=== PATIENT | female | born 1985 | race Caucasian/White ===

== ENCOUNTER 2017-01-23 21:54 | Emergency (ER) | payer MEDICARE, OTHER ==
[2017-01-23 21:58] VITALS: TEMP 98
[2017-01-23] MEDS ORDERED: FAMOTIDINE 20 MG/2 ML VIAL IV STA (22:00)
[2017-01-23] MEDS ORDERED: diphenhydrAMINE 50 MG/ML 1 ML VIAL IVP STA ×2 (22:00→22:41)
[2017-01-23] MEDS ORDERED: methylPREDNISolone SOD SUCCI 125 MG/2 ML VIAL IV STA (22:00)
[2017-01-23] MEDS ORDERED: EPINEPHrine 1 MG/ML 1 ML AMP SQ STA (22:00)
[2017-01-23 22:35] VITALS: RESP 18
--- NOTE | 2017-01-23 22:39 | ED ---
Allergic Reaction HPI - General Chief complaint: Allergic Reaction Stated complaint: Allergic Reaction/Shell Fish Time Seen by Provider: 01/23/17 22:00 Source: patient Mode of arrival: ambulatory Limitations: no limitations - History of Present Illness Initial Comments: This patient is a 31-year-old woman who presents to be evaluated for what she believes is an ALLERGIC reaction. The symptoms began probably 15 minutes or so before being seen here. The patient reports she had been at a restaurant and had tried some food that contained lobster. She had never had this before. She then began to feel funny. She felt pressure in her ears and a tightness in her throat. She states that her voice began getting hoarse. She also developed a nonproductive cough. At this point she and her fianc decided she should be seen at the hospital and they drove her directly here. Following triage she was started on medications and as I am seeing her the patient states the symptoms are improving. The patient is denying other symptoms, including no wheezing, dyspnea, nausea or vomiting. MD Complaint: allergic reaction -: minutes(s) Exposure: food Symptoms: difficulty swallowing, hoarseness, dizziness Severity: moderate Treatment Prior to Arrival: none Previous Allergy History: none - Related Data Home Medications Medication Instructions Recorded Confirmed Omeprazole 40 mg PO AC-BRKFST 01/31/14 08/01/16 Nortriptyline HCl [Nortriptyline 25 mg PO HS 07/05/16 08/01/16 HCl] Gi Cocktail 1 DAILY 08/01/16 Previous Rx's Medication Instructions Recorded Albuterol Inhaler [Ventolin Hfa 2 puff INHALATION Q6HR PRN #1 07/05/16 Inhaler] inhaler Metoclopramide HCl [Reglan] 5 mg PO BID PRN #10 tablet 08/01/16 Famotidine [Pepcid] 20 mg PO DAILY #14 tablet 01/23/17 predniSONE 60 mg PO DAILY #30 tab 01/23/17 Allergies Allergy/AdvReac Type Severity Reaction Status Date / Time Penicillins Allergy Unknown Verified 01/23/17 21:58 shellfish derived [Lobster] Allergy Dyspnea Verified 01/23/17 21:58 Review of Systems ROS Statement: Those systems with pertinent positive or pertinent negative responses have been documented in the HPI. ROS Other: All systems not noted in ROS Statement are negative. Constitutional: Denies: fever, chills Eyes: Denies: vision change ENT: Reports: as per HPI, ear pain, throat pain. Denies: hearing loss Respiratory: Reports: cough. Denies: dyspnea, wheezes, stridor Cardiovascular: Denies: chest pain, palpitations, edema Gastrointestinal: Denies: abdominal pain, vomiting, diarrhea Skin: Denies: rash Neurological: Denies: headache Psychiatric: Reports: anxiety Past Medical History Past Medical History: Asthma Additional Past Medical History / Comment(s): esophageal spasm, achalasia History of Any Multi-Drug Resistant Organisms: None Reported Past Surgical History: Appendectomy, Section Additional Past Surgical History / Comment(s): Esophageal surgery, multiple endoscopy with dilations. Past Anesthesia/Blood Transfusion Reactions: No Reported Reaction Past Psychological History: Anxiety, Depression Smoking Status: Current every day smoker Past Alcohol Use History: None Reported Past Drug Use History: None Reported, Marijuana General Exam Limitations: no limitations General appearance: alert, in no apparent distress, obese Head exam: Present: atraumatic, normocephalic Eye exam: Present: normal appearance. Absent: scleral icterus, conjunctival injection ENT exam: Present: normal oropharynx, mucous membranes moist Neck exam: Present: normal inspection, full ROM. Absent: tenderness, meningismus, lymphadenopathy Respiratory exam: Present: normal lung sounds bilaterally. Absent: respiratory distress, wheezes, rales, rhonchi, stridor Cardiovascular Exam: Present: regular rate, normal rhythm, normal heart sounds. Absent: systolic murmur, diastolic murmur, rubs, gallop GI/Abdominal exam: Present: soft. Absent: distended, tenderness, guarding, rebound, mass Extremities exam: Present: normal inspection, normal capillary refill. Absent: pedal edema, calf tenderness Back exam: Present: normal inspection. Absent: CVA tenderness (R), CVA tenderness (L) Neurological exam: Present: alert, CN II-XII intact Skin exam: Present: warm, dry, intact, normal color. Absent: rash Course Vital Signs 01/23/17 01/23/17 01/23/17 21:56 22:00 22:34 Temperature 98.0 F Pulse Rate 78 77 Respiratory 18 32 H 18 Rate Blood Pressure 161/81 O2 Sat by Pulse 100 100 Oximetry Disposition Clinical Impression: Allergic reaction, Food allergy Disposition: HOME SELF-CARE Condition: Good Instructions: Food Allergy (ED) Prescriptions: Famotidine [Pepcid] 20 mg PO DAILY #14 tablet predniSONE 60 mg PO DAILY #30 tab Referrals: Janeen Odom MD [Primary Care Provider] - 1-2 days
[2017-01-23 23:19] VITALS: BP 128/77; PULSE 75
== END 2017-01-23 23:18 | disposition home or self-care (01) ==
LOC: EC 21:54
DX: R42 Dizziness and giddiness (principal); T78.1XXA Other adverse food reactions, not elsewhere classified, initial encounter; R05 Cough; R13.10 Dysphagia, unspecified; F32.9 Major depressive disorder, single episode, unspecified; F41.9 Anxiety disorder, unspecified; F17.200 Nicotine dependence, unspecified, uncomplicated; Z79.899 Other long term (current) drug therapy; Z91.013 Allergy to seafood
CPT/HCPCS: 99283; 96374; 96375 ×2; 96372; J0171; J1200; J2930

== ENCOUNTER 2017-02-14 23:51 | Emergency (ER) | payer MEDICARE, OTHER ==
[2017-02-15] MEDS ORDERED: KETOROLAC 60 MG/2 ML VIAL IM STA (00:06)
--- NOTE | 2017-02-15 00:50 | ED ---
General Adult HPI - General Chief complaint: Extremity Injury, Lower Stated complaint: left foot injury Time Seen by Provider: 02/14/17 23:55 Source: patient, RN notes reviewed Mode of arrival: ambulatory Limitations: no limitations - History of Present Illness Initial comments: This is a 31-year-old female comes in complaining of left foot and toe pain. Patient states she dropped a cinderblock on her foot just prior to arrival. Patient denies any midfoot or heel pain. Patient denies ankle pain. Patient denies any break in the skin. Patient denies any other injury at this time. Patient was able to ambulate on the foot but she stated did hurt. - Related Data Home Medications Medication Instructions Recorded Confirmed Omeprazole 40 mg PO AC-BRKFST 01/31/14 08/01/16 Nortriptyline HCl [Nortriptyline 25 mg PO HS 07/05/16 08/01/16 HCl] Gi Cocktail 1 DAILY 08/01/16 Previous Rx's Medication Instructions Recorded Albuterol Inhaler [Ventolin Hfa 2 puff INHALATION Q6HR PRN #1 07/05/16 Inhaler] inhaler Metoclopramide HCl [Reglan] 5 mg PO BID PRN #10 tablet 08/01/16 Famotidine [Pepcid] 20 mg PO DAILY #14 tablet 01/23/17 predniSONE 60 mg PO DAILY #30 tab 01/23/17 Allergies Allergy/AdvReac Type Severity Reaction Status Date / Time Penicillins Allergy Unknown Verified 02/14/17 23:56 shellfish derived [Lobster] Allergy Dyspnea Verified 02/14/17 23:56 Review of Systems ROS Statement: Those systems with pertinent positive or pertinent negative responses have been documented in the HPI. ROS Other: All systems not noted in ROS Statement are negative. Past Medical History Past Medical History: Asthma Additional Past Medical History / Comment(s): esophageal spasm, achalasia History of Any Multi-Drug Resistant Organisms: None Reported Past Surgical History: Appendectomy, Section Additional Past Surgical History / Comment(s): Esophageal surgery, multiple endoscopy with dilations. Past Anesthesia/Blood Transfusion Reactions: No Reported Reaction Past Psychological History: Anxiety, Depression Smoking Status: Current every day smoker Past Alcohol Use History: None Reported Past Drug Use History: None Reported, Marijuana General Exam - General Exam Comments Initial Comments: GENERAL Patient is well-developed and well-nourished. Patient is in mild distress. EYES Patient's pupils are equal and round. Extraocular motion is intact SKIN Unremarkable NEURO The patient is alert and oriented 3 PYSCH Patient has normal interpersonal interactions. MUSCULOSKELETAL Patient's distal fourth metatarsal is tender to palpation as is the fourth toe. Limitations: no limitations Course Vital Signs 02/14/17 23:53 Temperature 99.2 F Pulse Rate 85 Respiratory 20 Rate Blood Pressure 132/80 O2 Sat by Pulse 100 Oximetry Medical Decision Making - Medical Decision Making X-rays negative for fracture. Disposition Clinical Impression: Contusion of foot Disposition: HOME SELF-CARE Condition: Good Instructions: Foot Contusion (ED) Referrals: Janeen Odom MD [Primary Care Provider] - 1-2 days Time of Disposition: 00:49
[2017-02-15 00:54] VITALS: BP 119/71; PULSE 65; RESP 16; TEMP 97.6
--- NOTE | 2017-02-15 01:22 | XR ---
EXAM: XR Left Foot Complete, 3 or More Views CLINICAL HISTORY: Reason: Pain TECHNIQUE: Frontal, lateral and oblique views of the left foot. COMPARISON: 01/31/14. FINDINGS: Bones/joints: Tiny posterior calcaneal spur. No acute fracture. No dislocation. Soft tissues: Mild forefoot swelling. No radiopaque foreign body. IMPRESSION: No acute osseous abnormality.
== END 2017-02-15 00:53 | disposition home or self-care (01) ==
LOC: EC 23:51
DX: S90.122A Contusion of left lesser toe(s) without damage to nail, initial encounter (principal); F32.9 Major depressive disorder, single episode, unspecified; F41.9 Anxiety disorder, unspecified; F17.200 Nicotine dependence, unspecified, uncomplicated; Z79.899 Other long term (current) drug therapy; Z88.0 Allergy status to penicillin; Z91.013 Allergy to seafood; Z87.19 Personal history of other diseases of the digestive system; W20.8XXA Other cause of strike by thrown, projected or falling object, initial encounter
CPT/HCPCS: 73630; 99283; 96372; J1885

== ENCOUNTER → 2017-09-15 | Outpatient (CLI) | payer MEDICARE, OTHER ==
--- NOTE | 2017-09-15 15:57 | US ---
EXAMINATION TYPE: US venous doppler duplex LE LT DATE OF EXAM: 09/15/2017 3:48 PM COMPARISON: NONE CLINICAL HISTORY: R22.42 Pain/swelling left lower leg. Pt having pain and redness lower anterior left leg SIDE PERFORMED: Left TECHNIQUE: The lower extremity deep venous system is examined utilizing real time linear array sonog vince with graded compression, doppler sonography and color-flow sonography. VESSELS IMAGED: External Iliac Vein (EIV) Common Femoral Vein Deep Femoral Vein Greater Saphenous Vein * Femoral Vein Popliteal Vein Small Saphenous Vein * Proximal Calf Veins (* superficial vessels) Grayscale, color doppler, spectral doppler imaging performed of the deep veins of the lower extremity . There is normal flow, compressibility, vascular waveforms. Left Leg: Negative for DVT Results called to Tanja at 's office at time of exam IMPRESSION: No evidence for DVT.
== END | disposition home or self-care (01) ==
LOC: RADUSWWP 15:30
PROVIDERS: ATTEND Internal Medicine
DX: R22.42 Localized swelling, mass and lump, left lower limb (principal)

== ENCOUNTER 2017-12-30 15:44 | Emergency (ER) | payer MEDICARE, OTHER ==
[2017-12-30 15:48] VITALS: BP 133/73; PULSE 74; RESP 20; TEMP 97.8
[2017-12-30] MEDS ORDERED: HYDROcodone/APAP 5-325MG 1 EACH TAB PO STA (16:04)
[2017-12-30] MEDS ORDERED: carBAMazepine 100 MG TAB.ER.12H PO STA (16:04)
[2017-12-30] MEDS ORDERED: CYCLOBENZAPRINE 10MG STARTER 3 TAB BTL PO STA (16:06)
--- NOTE | 2017-12-30 16:21 | ED ---
General Adult HPI - General Chief complaint: Recheck/Abnormal Lab/Rx Stated complaint: Facial Pain Time Seen by Provider: 12/30/17 15:53 Source: patient, RN notes reviewed, old records reviewed Mode of arrival: ambulatory Limitations: no limitations - History of Present Illness Initial comments: This patient is a 32-year-old female presents emergency Department chief complaint of acute exacerbation of trigeminal neuralgia. She reports for the past 2 hours she's been having some right-sided facial pain. She reports it's shooting in nature. It will come and go. Patient reports that she has had no other symptoms. Denies a significant headache. She reports that she had an exacerbation many years ago. She received a nerve block at that time. Patient has not had an exacerbation in quite some time.Patient denies any recent fever, chills, shortness of breath, chest pain, back pain, abdominal pain, nausea vomiting, numbness or tingling, dysuria or hematuria, constipation or diarrhea, headaches or visual changes, or any other current symptoms - Related Data Home Medications Medication Instructions Recorded Confirmed Omeprazole 40 mg PO AC-BRKFST 01/31/14 08/01/16 Nortriptyline HCl [Nortriptyline 25 mg PO HS 07/05/16 08/01/16 HCl] Gi Cocktail 1 DAILY 08/01/16 Previous Rx's Medication Instructions Recorded Albuterol Inhaler [Ventolin Hfa 2 puff INHALATION Q6HR PRN #1 07/05/16 Inhaler] inhaler Metoclopramide HCl [Reglan] 5 mg PO BID PRN #10 tablet 08/01/16 Famotidine [Pepcid] 20 mg PO DAILY #14 tablet 01/23/17 predniSONE 60 mg PO DAILY #30 tab 01/23/17 Cyclobenzaprine [Flexeril] 10 mg PO TID #15 tab 12/30/17 HYDROcodone/APAP 5-325MG [Thompson 1 tab PO Q4HR PRN #12 tab 12/30/17 5-325] carBAMazepine 100 mg PO BID #18 tab.chew 12/30/17 Allergies Allergy/AdvReac Type Severity Reaction Status Date / Time Penicillins Allergy Unknown Verified 02/14/17 23:56 shellfish derived [Lobster] Allergy Dyspnea Verified 02/14/17 23:56 Review of Systems ROS Statement: Those systems with pertinent positive or pertinent negative responses have been documented in the HPI. ROS Other: All systems not noted in ROS Statement are negative. Past Medical History Past Medical History: Asthma Additional Past Medical History / Comment(s): esophageal spasm, achalasia History of Any Multi-Drug Resistant Organisms: None Reported Past Surgical History: Appendectomy, Section Additional Past Surgical History / Comment(s): Esophageal surgery, multiple endoscopy with dilations. Past Anesthesia/Blood Transfusion Reactions: No Reported Reaction Past Psychological History: Anxiety, Depression Smoking Status: Current every day smoker Past Alcohol Use History: None Reported Past Drug Use History: None Reported, Marijuana General Exam - General Exam Comments Initial Comments: 32-year-old female. Alert and oriented. No distress. Limitations: no limitations General appearance: alert, in no apparent distress Head exam: Present: atraumatic, normocephalic, normal inspection Eye exam: Present: normal appearance, PERRL, EOMI. Absent: scleral icterus, conjunctival injection, periorbital swelling ENT exam: Present: normal exam, mucous membranes moist, other (Patient has tenderness to right side of face.) Neck exam: Present: normal inspection. Absent: tenderness, meningismus, lymphadenopathy Respiratory exam: Present: normal lung sounds bilaterally. Absent: respiratory distress, wheezes, rales, rhonchi, stridor Cardiovascular Exam: Present: regular rate, normal rhythm, normal heart sounds. Absent: systolic murmur, diastolic murmur, rubs, gallop, clicks GI/Abdominal exam: Present: soft, normal bowel sounds. Absent: distended, tenderness, guarding, rebound, rigid Extremities exam: Present: normal inspection, full ROM, normal capillary refill. Absent: tenderness, pedal edema, joint swelling, calf tenderness Back exam: Present: normal inspection Neurological exam: Present: alert, oriented X3, CN II-XII intact Course Vital Signs 12/30/17 15:46 Temperature 97.8 F Pulse Rate 74 Respiratory 20 Rate Blood Pressure 133/73 O2 Sat by Pulse 100 Oximetry Medical Decision Making - Medical Decision Making 32-year-old female chief acute exacerbation of trigeminal neuralgia pain. Patient is pain shooting in nature. She is very sensitive to the right side of her face. She winces with light palpation. Patient will be started on carbamazepine, Flexeril and given pain medication. She requests a nerve block. Discussed that we do not have anybody to do a trigeminal nerve block in the emergency department. Discussed she can follow-up with neurology. Given referral for Dr. Shaw. All questions answered return parameters were discussed. Disposition Clinical Impression: Trigeminal neuralgia of right side of face Disposition: HOME SELF-CARE Condition: Good Instructions: Trigeminal Neuralgia (ED) Additional Instructions: Patient advised to ice the area. Take the medications as prescribed. Follow- up with neurologist. Return to the emergency department if any alarming signs or symptoms occur. Prescriptions: carBAMazepine 100 mg PO BID #18 tab.chew Cyclobenzaprine [Flexeril] 10 mg PO TID #15 tab HYDROcodone/APAP 5-325MG [Thompson 5-325] 1 tab PO Q4HR PRN #12 tab PRN Reason: Nausea Is patient prescribed a controlled substance at d/c from ED?: No If prescribed controlled substance>3 days was MAPS reviewed?: No When asked, does pt state using other controlled substances?: No Referrals: Janeen Odom MD [Primary Care Provider] - 1-2 days Joana Anglin MD [STAFF PHYSICIAN] - 1-2 days Time of Disposition: 16:15
== END 2017-12-30 16:30 | disposition home or self-care (01) ==
LOC: EC 15:44
DX: G50.0 Trigeminal neuralgia (principal); F32.9 Major depressive disorder, single episode, unspecified; F41.9 Anxiety disorder, unspecified; F17.200 Nicotine dependence, unspecified, uncomplicated; Z79.899 Other long term (current) drug therapy; Z91.013 Allergy to seafood; Z88.0 Allergy status to penicillin
CPT/HCPCS: 99283

== ENCOUNTER 2018-01-22 16:56 | Emergency (ER) | payer MEDICARE, OTHER ==
[2018-01-22 17:20] VITALS: TEMP 98.1
[2018-01-22] MEDS ORDERED: MORPHINE SULFATE 4 MG/ML SYRINGE IVP STA (18:36)
[2018-01-22] MEDS ORDERED: methylPREDNISolone SOD SUCCI 125 MG/2 ML VIAL IV STA (18:48)
--- NOTE | 2018-01-22 20:05 | ED ---
General Adult HPI - General Chief complaint: Recheck/Abnormal Lab/Rx Stated complaint: Facial Pain Time Seen by Provider: 01/22/18 18:09 Source: patient Mode of arrival: ambulatory Limitations: no limitations - History of Present Illness Initial comments: Patient is a 32-year-old female presenting for right-sided facial pain. She states that she has a known history of trigeminal neuralgia and that is been going on for several years but increasing since today. The pain is a sharp stabbing sensation on the right side of face and she has tried Flexeril, carbamazepine, naproxen today with still no relief. She denies any other neurologic symptoms including headache, dizziness, facial numbness or focal weakness. - Related Data Home Medications Medication Instructions Recorded Confirmed Omeprazole 40 mg PO AC-BRKFST 01/31/14 08/01/16 Nortriptyline HCl [Nortriptyline 25 mg PO HS 07/05/16 08/01/16 HCl] Gi Cocktail 1 DAILY 08/01/16 Previous Rx's Medication Instructions Recorded Albuterol Inhaler [Ventolin Hfa 2 puff INHALATION Q6HR PRN #1 07/05/16 Inhaler] inhaler Metoclopramide HCl [Reglan] 5 mg PO BID PRN #10 tablet 08/01/16 Famotidine [Pepcid] 20 mg PO DAILY #14 tablet 01/23/17 Cyclobenzaprine [Flexeril] 10 mg PO TID #15 tab 12/30/17 HYDROcodone/APAP 5-325MG [Forest 1 tab PO Q4HR PRN #12 tab 12/30/17 5-325] carBAMazepine 100 mg PO BID #18 tab.chew 12/30/17 Allergies Allergy/AdvReac Type Severity Reaction Status Date / Time Penicillins Allergy Unknown Verified 01/22/18 17:20 shellfish derived [Lobster] Allergy Dyspnea Verified 01/22/18 17:20 Review of Systems ROS Statement: Those systems with pertinent positive or pertinent negative responses have been documented in the HPI. Constitutional: Negative for chills, fatigue and fever. HENT: Negative for congestion. Respiratory: Negative for chest tightness, shortness of breath and wheezing. Negative for cough Cardiovascular: Negative for chest pain and palpitations. Gastrointestinal: Negative for abdominal pain. Negative for abdominal distention , diarrhea, nausea and vomiting. Genitourinary: Negative for dysuria. Musculoskeletal: Negative for back pain, neck pain and neck stiffness. Skin: Negative for color change. Neurological: Negative for dizziness, speech difficulty, weakness and light- headedness. Positive for facial pain Psychiatric/Behavioral: Negative for agitation and confusion. The patient is not nervous/anxious. ROS Other: All systems not noted in ROS Statement are negative. Past Medical History Past Medical History: Asthma Additional Past Medical History / Comment(s): esophageal spasm, achalasia, trigeminal neuralgia History of Any Multi-Drug Resistant Organisms: None Reported Past Surgical History: Appendectomy, Section Additional Past Surgical History / Comment(s): Esophageal surgery, multiple endoscopy with dilations. Past Anesthesia/Blood Transfusion Reactions: No Reported Reaction Past Psychological History: Anxiety, Depression Smoking Status: Current every day smoker Past Alcohol Use History: None Reported Past Drug Use History: Marijuana General Exam - General Exam Comments Initial Comments: Constitutional: Pt is oriented to person, place, and time. Pt appears well- developed and well-nourished. HENT: Head: Normocephalic and atraumatic. Eyes: EOM are normal. Neck: Normal range of motion. Neck supple. Cardiovascular: Normal rate, regular rhythm, S1 normal, S2 normal and normal heart sounds. Exam reveals no gallop and no friction rub. No murmur heard. Pulmonary/Chest: Effort normal and breath sounds normal. No tachypnea and no bradypnea. No respiratory distress. No wheezes or rales noted. Abdominal: Soft. Bowel sounds are normal. Pt exhibits no shifting dullness, no distension, no pulsatile liver, no fluid wave, no abdominal bruit and no ascites. There is no tenderness. There is no rigidity, no rebound, no guarding, no tenderness at McBurney's point and negative Galvan's sign. Musculoskeletal: Normal range of motion. Neurological: Pt is alert and oriented to person, place, and time. No cranial nerve deficit. Skin: Skin is warm and dry. No rash noted. Pt is not diaphoretic. No erythema. No pallor. Psychiatric: Pt has a normal mood and affect. Pt behavior is normal. Thought content normal. Limitations: no limitations Course Vital Signs 01/22/18 17:19 Temperature 98.1 F Pulse Rate 75 Respiratory 20 Rate Blood Pressure 153/98 O2 Sat by Pulse 99 Oximetry Medical Decision Making - Medical Decision Making Case is discussed with on-call neurology and it was recommended the patient be given 250 mg of Solu-Medrol. Additionally, it is recommended that the carbamazepine be increased to 3 times a day. Patient was given morphine and symptoms were severely decreased and she states that she felt comfortable going home. These recommendations were discussed with the patient and she was also given a prescription for prednisone. She was advised to follow-up with neurology and/or return to emergency department if the symptoms worsened. Explained all labs and diagnostic test results and that we will discharge the patient home and patient is to follow up with PCP in 1-2 days and return to the ED if symptoms worsen. Pt is agreeable to plan. Disposition Clinical Impression: Trigeminal neuralgia Disposition: HOME SELF-CARE Condition: Good Is patient prescribed a controlled substance at d/c from ED?: No Referrals: Janeen Odom MD [Primary Care Provider] - 1-2 days Kathy Rojas MD [STAFF PHYSICIAN] - 1-2 days Time of Disposition: 20:04
--- NOTE | 2018-01-22 20:16 | ED ---
Medical Decision Making - Medical Decision Making Purpose of this note is to prescribe prednisone. Disposition Clinical Impression: Trigeminal neuralgia Disposition: HOME SELF-CARE Condition: Good Instructions: Trigeminal Neuralgia (ED) Prescriptions: carBAMazepine [Carbatrol] 100 mg PO Q8HR 7 Days #21 cap predniSONE 50 mg PO DAILY #5 tablet Is patient prescribed a controlled substance at d/c from ED?: No Referrals: Kathy Rojas MD [STAFF PHYSICIAN] - 1-2 days Janeen Odom MD [Primary Care Provider] - 1-2 days Time of Disposition: 20:05
[2018-01-22 20:29] VITALS: BP 114/56; PULSE 95; RESP 18
== END 2018-01-22 20:28 | disposition home or self-care (01) ==
LOC: EC 16:56
DX: G50.0 Trigeminal neuralgia (principal); F32.9 Major depressive disorder, single episode, unspecified; F41.9 Anxiety disorder, unspecified; F17.200 Nicotine dependence, unspecified, uncomplicated; Z79.899 Other long term (current) drug therapy; Z88.0 Allergy status to penicillin; Z91.013 Allergy to seafood
CPT/HCPCS: 99283; 96374; 96375; J2270; J2930

== ENCOUNTER 2018-01-26 16:08 | Emergency (ER) | payer MEDICARE, OTHER ==
[2018-01-26 16:16] VITALS: BP 128/87; PULSE 91; RESP 18; TEMP 98.3
--- NOTE | 2018-01-26 17:09 | ED ---
General Adult HPI - General Chief complaint: ENT Stated complaint: Facial Pain Time Seen by Provider: 01/26/18 16:40 Source: patient, RN notes reviewed Mode of arrival: ambulatory Limitations: no limitations - History of Present Illness Initial comments: This is a 32-year-old female who presents to the emergency department with chief complaint of facial pain. Patient states that she has a history of trigeminal neuralgia. She states that she does see a neurologist however does not have a follow-up appointment until March 22. She states that over the past couple weeks she has been experiencing flareups of her trigeminal neuralgia. She states, "it feels like my face is electric using my brain." She states that the pain is on the right side of her face. She states that she had to leave work early today because the pain became so bad. She states that 2 days ago she did contact her neurologist who increased her dose of carbamazepine. She states that she has been taking this increased dose and ibuprofen with no relief. Denies fever, chills, chest pain, shortness of breath, abdominal pain, nausea or vomiting, constipation or diarrhea, or vision changes. - Related Data Home Medications Medication Instructions Recorded Confirmed Omeprazole 40 mg PO AC-BRKFST 01/31/14 08/01/16 Nortriptyline HCl [Nortriptyline 25 mg PO HS 07/05/16 08/01/16 HCl] Gi Cocktail 1 DAILY 08/01/16 Previous Rx's Medication Instructions Recorded Albuterol Inhaler [Ventolin Hfa 2 puff INHALATION Q6HR PRN #1 07/05/16 Inhaler] inhaler Metoclopramide HCl [Reglan] 5 mg PO BID PRN #10 tablet 08/01/16 Famotidine [Pepcid] 20 mg PO DAILY #14 tablet 01/23/17 Cyclobenzaprine [Flexeril] 10 mg PO TID #15 tab 12/30/17 HYDROcodone/APAP 5-325MG [[place] 1 tab PO Q4HR PRN #12 tab 12/30/17 5-325] carBAMazepine 100 mg PO BID #18 tab.chew 12/30/17 carBAMazepine [Carbatrol] 100 mg PO Q8HR 7 Days #21 cap 01/22/18 predniSONE 50 mg PO DAILY #5 tablet 01/22/18 Allergies Allergy/AdvReac Type Severity Reaction Status Date / Time Penicillins Allergy Unknown Verified 01/26/18 16:16 shellfish derived [Lobster] Allergy Dyspnea Verified 01/26/18 16:16 Review of Systems ROS Statement: Those systems with pertinent positive or pertinent negative responses have been documented in the HPI. ROS Other: All systems not noted in ROS Statement are negative. Past Medical History Past Medical History: Asthma Additional Past Medical History / Comment(s): esophageal spasm, achalasia, trigeminal neuralgia History of Any Multi-Drug Resistant Organisms: None Reported Past Surgical History: Appendectomy, Section Additional Past Surgical History / Comment(s): Esophageal surgery, multiple endoscopy with dilations. Past Anesthesia/Blood Transfusion Reactions: No Reported Reaction Past Psychological History: Anxiety, Depression Smoking Status: Current every day smoker Past Alcohol Use History: None Reported Past Drug Use History: Marijuana General Exam - General Exam Comments Initial Comments: General: Awake and alert, well-developed; in no apparent distress. Lying on ED stretcher with hand cradling her right cheek. Niece is at bedside. HEENT: Head atraumatic, normocephalic. Pupils are equal, round and reactive to light. Extraocular movements intact. Oropharynx moist without erythema or exudate. Neck: Supple. Normal ROM. Cardiovascular: Regular rate and rhythm. No murmurs, rubs or gallops. Chest symmetrical. Respiratory: Lungs clear to auscultation bilaterally. No wheezes, rales or rhonchi. Normal respiratory effort with no use of accessory muscles. Musculoskeletal: Normal ROM, no tenderness bilateral upper and lower extremities. Ambulating normally. Neurological: Alert and oriented x3. CN II-XII grossly intact. Speech is fluent and answers are appropriate. No focal neuro deficits. Psychiatric: Normal mood and affect. No overt signs of depression or anxiety noted. Limitations: no limitations Course Vital Signs 01/26/18 16:13 Temperature 98.3 F Pulse Rate 91 Respiratory 18 Rate Blood Pressure 128/87 O2 Sat by Pulse 100 Oximetry Medical Decision Making - Medical Decision Making This is a 32-year-old female who presents to the emergency department with chief complaint of facial pain. Patient has a history of trigeminal neuralgia. She has been having flareups over the past couple of weeks. Unable to get an appointment with her neurologist until March 22. This case was discussed with attending physician, Dr. Gonzalez. Patient is to follow-up with her primary care provider or neurologist in order to have medications adjusted. We do not do that here in the emergency department. I explained this to patient and she became very agitated and frustrated. I did offer patient pain medication, however explained that this would not cure the problem. She refuses pain medication. Vital signs are stable and she is in no acute distress. She'll be discharged home at this time. Disposition Clinical Impression: Trigeminal neuralgia Disposition: HOME SELF-CARE Condition: Good Instructions: Trigeminal Neuralgia (ED) Additional Instructions: Please follow up with primary care provider within 1-2 days. Return to emergency department if symptoms should worsen or any concerns arise. Is patient prescribed a controlled substance at d/c from ED?: No Referrals: Janeen Odom MD [Primary Care Provider] - 1-2 days Time of Disposition: 17:09
== END 2018-01-26 17:13 | disposition home or self-care (01) ==
LOC: EC 16:08
DX: G50.0 Trigeminal neuralgia (principal); F32.9 Major depressive disorder, single episode, unspecified; F17.200 Nicotine dependence, unspecified, uncomplicated; Z79.899 Other long term (current) drug therapy; Z88.0 Allergy status to penicillin; Z91.013 Allergy to seafood
CPT/HCPCS: 99283

== ENCOUNTER 2018-06-17 00:03 | Emergency (ER) | payer MEDICARE, OTHER ==
[2018-06-17] MEDS ORDERED: SODIUM CHLORIDE 0.9% IVPB STA (00:31)
[2018-06-17] MEDS ORDERED: PHENYTOIN SODIUM IVPB STA (00:31)
[2018-06-17] MEDS ORDERED: carBAMazepine 200 MG TAB PO STA (00:31)
[2018-06-17] MEDS ORDERED: ONDANSETRON 4 MG/2 ML VIAL IVP STA (00:50)
--- NOTE | 2018-06-17 01:01 | ED ---
General Adult HPI - General Chief complaint: ENT Stated complaint: Facial Pain Time Seen by Provider: 06/17/18 00:10 Source: patient Mode of arrival: ambulatory Limitations: no limitations - History of Present Illness Initial comments: This patient is a 33-year-old woman with history of trigeminal neuralgia. She presents with complaint that she is having exacerbation of that condition this evening. She states that she had run out of her carbamazepine. Patient states she is having very sharp pains running from the right ear to the infraorbital area. They're intermittent. She states it feels like she is being shocked. She denies any new symptoms. -: hour(s) Location: face Quality: sharp Consistency: intermittent Improves with: none Worsens with: none Associated Symptoms: denies other symptoms Treatments Prior to Arrival: none - Related Data Home Medications Medication Instructions Recorded Confirmed Omeprazole 40 mg PO AC-BRKFST 01/31/14 08/01/16 Nortriptyline HCl 25 mg PO HS 07/05/16 08/01/16 Gi Cocktail 1 DAILY 08/01/16 Previous Rx's Medication Instructions Recorded Albuterol Inhaler [Ventolin Hfa 2 puff INHALATION Q6HR PRN #1 07/05/16 Inhaler] inhaler Metoclopramide HCl [Reglan] 5 mg PO BID PRN #10 tablet 08/01/16 Famotidine [Pepcid] 20 mg PO DAILY #14 tablet 01/23/17 Cyclobenzaprine [Flexeril] 10 mg PO TID #15 tab 12/30/17 HYDROcodone/APAP 5-325MG [[place] 1 tab PO Q4HR PRN #12 tab 12/30/17 5-325] carBAMazepine 100 mg PO BID #18 tab.chew 12/30/17 carBAMazepine [Carbatrol] 100 mg PO Q8HR 7 Days #21 cap 01/22/18 predniSONE 50 mg PO DAILY #5 tablet 01/22/18 carBAMazepine 100 mg PO TID #30 tab.chew 06/17/18 Allergies Allergy/AdvReac Type Severity Reaction Status Date / Time Penicillins Allergy Unknown Verified 06/17/18 00:08 shellfish derived [Lobster] Allergy Dyspnea Verified 06/17/18 00:08 Review of Systems ROS Statement: Those systems with pertinent positive or pertinent negative responses have been documented in the HPI. ROS Other: All systems not noted in ROS Statement are negative. Constitutional: Denies: fever, chills Eyes: Denies: eye pain, vision change ENT: Denies: ear pain, hearing loss, congestion Respiratory: Denies: cough Cardiovascular: Denies: chest pain Gastrointestinal: Denies: abdominal pain Musculoskeletal: Denies: back pain Skin: Denies: rash Neurological: Denies: headache, weakness, numbness, paresthesias Past Medical History Past Medical History: Asthma Additional Past Medical History / Comment(s): esophageal spasm, achalasia, trigeminal neuralgia History of Any Multi-Drug Resistant Organisms: None Reported Past Surgical History: Appendectomy, Section Additional Past Surgical History / Comment(s): Esophageal surgery, multiple endoscopy with dilations. Past Anesthesia/Blood Transfusion Reactions: No Reported Reaction Past Psychological History: Anxiety, Depression Smoking Status: Current every day smoker Past Alcohol Use History: None Reported Past Drug Use History: Marijuana General Exam Limitations: no limitations General appearance: alert, obese Head exam: Present: atraumatic, normocephalic Eye exam: Present: normal appearance, PERRL, EOMI. Absent: scleral icterus, conjunctival injection ENT exam: Present: normal oropharynx Neck exam: Present: normal inspection, full ROM. Absent: tenderness Neurological exam: Present: alert, CN II-XII intact Skin exam: Present: warm, dry, intact, normal color. Absent: rash Course Vital Signs 06/17/18 00:05 Temperature 98.0 F Pulse Rate 112 H Respiratory 18 Rate Blood Pressure 137/73 O2 Sat by Pulse 98 Oximetry Disposition Clinical Impression: Trigeminal neuralgia of right side of face Disposition: HOME SELF-CARE Condition: Good Instructions: Trigeminal Neuralgia (ED) Prescriptions: carBAMazepine 100 mg PO TID #30 tab.chew Is patient prescribed a controlled substance at d/c from ED?: No Referrals: Janeen Odom MD [Primary Care Provider] - 1-2 days
[2018-06-17 03:40] VITALS: BP 109/53; PULSE 80; RESP 16; TEMP 98.1
== END 2018-06-17 03:40 | disposition home or self-care (01) ==
LOC: EC 00:03
DX: G50.0 Trigeminal neuralgia (principal); F32.9 Major depressive disorder, single episode, unspecified; F41.9 Anxiety disorder, unspecified; F17.200 Nicotine dependence, unspecified, uncomplicated; Z79.899 Other long term (current) drug therapy; Z88.0 Allergy status to penicillin; Z91.013 Allergy to seafood
CPT/HCPCS: 99283; 96365; 96366 ×2; 96375; J1165; J2405

== ENCOUNTER 2019-03-25 17:03 | Emergency (ER) | payer OTHER, MEDICARE ==
--- NOTE | 2019-03-25 17:51 | ED ---
Skin/Abscess/FB HPI - General Chief complaint: Skin/Abscess/Foreign Body Stated complaint: Lump on breast Time Seen by Provider: 03/25/19 17:25 Source: patient Mode of arrival: ambulatory Limitations: no limitations - History of Present Illness Initial comments: Patient is a 34-year-old female presenting to the emergency Department with complaints of pain in her left breast x 1 week. Patient states she started noticing pain in her left breast a week ago and then yesterday started noticing some redness on the lower aspect of her breast. Then today in the shower patient felt a large lump in the bottom part of her breast which was painful to the touch. Patient states she has not breast-fed in over 2 years. Patient denies any fever, chills. Patient does admit to some nausea. Patient has never had this before. Patient has no other complaints at this time. - Related Data Home Medications Medication Instructions Recorded Confirmed Omeprazole 40 mg PO AC-BRKFST 01/31/14 08/01/16 Nortriptyline HCl 25 mg PO HS 07/05/16 08/01/16 Gi Cocktail 1 DAILY 08/01/16 Previous Rx's Medication Instructions Recorded Albuterol Inhaler [Ventolin Hfa 2 puff INHALATION Q6HR PRN #1 07/05/16 Inhaler] inhaler Metoclopramide HCl [Reglan] 5 mg PO BID PRN #10 tablet 08/01/16 Famotidine [Pepcid] 20 mg PO DAILY #14 tablet 01/23/17 Cyclobenzaprine [Flexeril] 10 mg PO TID #15 tab 12/30/17 HYDROcodone/APAP 5-325MG [[place] 1 tab PO Q4HR PRN #12 tab 12/30/17 5-325] carBAMazepine 100 mg PO BID #18 tab.chew 12/30/17 carBAMazepine [Carbatrol] 100 mg PO Q8HR 7 Days #21 cap 01/22/18 predniSONE 50 mg PO DAILY #5 tablet 01/22/18 carBAMazepine 100 mg PO TID #30 tab.chew 06/17/18 Albuterol Nebulized [Ventolin 2.5 mg INHALATION Q4H PRN #30 nebu 11/27/18 Nebulized] Cephalexin [Keflex] 500 mg PO Q6HR 10 Days #40 cap 03/25/19 Ondansetron Odt [Zofran Odt] 4 mg PO Q8HR PRN #10 tab 03/25/19 Allergies Allergy/AdvReac Type Severity Reaction Status Date / Time Penicillins Allergy Unknown Verified 03/25/19 17:10 shellfish derived [Lobster] Allergy Dyspnea Verified 03/25/19 17:10 Review of Systems ROS Statement: Those systems with pertinent positive or pertinent negative responses have been documented in the HPI. ROS Other: All systems not noted in ROS Statement are negative. Past Medical History Past Medical History: Asthma Additional Past Medical History / Comment(s): esophageal spasm, achalasia, trigeminal neuralgia History of Any Multi-Drug Resistant Organisms: None Reported Past Surgical History: Appendectomy, Section Additional Past Surgical History / Comment(s): Esophageal surgery, multiple en doscopy with dilations. Past Anesthesia/Blood Transfusion Reactions: No Reported Reaction Past Psychological History: Anxiety, Depression Smoking Status: Current every day smoker Past Alcohol Use History: None Reported Past Drug Use History: None Reported General Exam - General Exam Comments Initial Comments: GENERAL: Well-appearing, well-nourished and in no acute distress. HEAD: Atraumatic, normocephalic. EYES: Pupils equal round and reactive to light, extraocular movements intact, sclera anicteric, conjunctiva are normal. ENT: TMs normal, nares patent, oropharynx clear without exudates. Moist mucous membranes. NECK: Normal range of motion, supple without lymphadenopathy or JVD. LUNGS: Breath sounds clear to auscultation bilaterally and equal. No wheezes rales or rhonchi. HEART: Regular rate and rhythm without murmurs, rubs or gallops. ABDOMEN: Soft, nontender, normoactive bowel sounds. No guarding, no rebound. No masses appreciated. : Deferred EXTREMITIES: Normal range of motion, no pitting or edema. No clubbing or cyanosis. NEUROLOGICAL: Cranial nerves II through XII grossly intact. Normal speech, normal gait. PSYCH: Normal mood, normal affect. SKIN: Warm, Dry. Patient has small area of mild erythema on the left breast below the nipple. Patient has area of induration underneath that is about 3 cm in diameter and tender to palpation. There is no pustule present. Patient is having active drainage from the nipple that is cream-colored. Limitations: no limitations Course Vital Signs 03/25/19 03/25/19 17:10 18:20 Temperature 98.3 F 98.1 F Pulse Rate 97 81 Respiratory 18 16 Rate Blood Pressure 106/83 110/78 O2 Sat by Pulse 98 98 Oximetry Medical Decision Making - Medical Decision Making Patient is a 34-year-old female who presents with left breast pain x 1 week. Patient states she noticed an area of redness and a painful lump this morning. Patient has been afebrile. On exam patient has very mild erythema of the left breast below the nipple as well as an area of induration that is about 3 cm in diameter. Patient is very tender to the touch of the area. Patient also has some mild drainage from her nipple that is cream colored. Patient will be started on oral antibiotics and counseled to use warm compresses to the left breast. Vital signs remained stable during stay. Patient will be discharged home and she is in agreement with this plan. Return parameters were discussed with the patient she verbalized understanding. Case discussed with Dr. Mathis. Disposition Clinical Impression: Abscess of breast Disposition: HOME SELF-CARE Condition: Stable Instructions (If sedation given, give patient instructions): Abscess (ED) Additional Instructions: Please return to the Emergency Department if symptoms worsen or any other concerns. Use warm compresses Prescriptions: Cephalexin [Keflex] 500 mg PO Q6HR 10 Days #40 cap Ondansetron Odt [Zofran Odt] 4 mg PO Q8HR PRN #10 tab PRN Reason: Nausea Is patient prescribed a controlled substance at d/c from ED?: No Referrals: Janeen Odom MD [Primary Care Provider] - 1-2 days
[2019-03-25 18:21] VITALS: BP 110/78; PULSE 81; RESP 16; TEMP 98.1
== END 2019-03-25 18:20 | disposition home or self-care (01) ==
LOC: EC 17:03
DX: N61.1 Abscess of the breast and nipple (principal); R11.0 Nausea; F41.9 Anxiety disorder, unspecified; F32.9 Major depressive disorder, single episode, unspecified; F17.200 Nicotine dependence, unspecified, uncomplicated; Z79.899 Other long term (current) drug therapy; Z88.0 Allergy status to penicillin; Z91.013 Allergy to seafood
CPT/HCPCS: 99283